=== PATIENT | female | born 1975 | race Caucasian/White ===

== ENCOUNTER 2024-07-18 10:51 | Emergency (ER) | payer SELFPAY ==
[2024-07-18 10:54] VITALS: BP 148/85; PULSE 58; RESP 20; TEMP 37; O2SAT 98
--- NOTE | 2024-07-18 10:57 | CTR_ITS ---
PROCEDURE INFORMATION: Exam: CT Head Without Contrast Exam date and time: 07/18/2024 11:29 AM Age: 48 years old Clinical indication: Pain; Headache; Additional info: Headaches TECHNIQUE: Imaging protocol: Computed tomography of the head without contrast. Radiation optimization: All CT scans at this facility use at least one of these dose optimization techniques: automated exposure control; mA and/or kV adjustment per patient size (includes targeted exams where dose is matched to clinical indication); or iterative reconstruction. COMPARISON: No relevant prior studies available. RADIATION DOSE METRICS: Total DLP (mGy-cm): 1010.88 FINDINGS: Brain: Normal. No hemorrhage. Unremarkable white matter. No mass effect. Cerebral ventricles: No ventriculomegaly. Paranasal sinuses: Visualized sinuses are unremarkable. No fluid levels. Mastoid air cells: Visualized mastoid air cells are well aerated. Bones: Unremarkable. No acute fracture. Soft tissues: Unremarkable. CT/CT head wo con* [id number] IMPRESSION: No large territorial infarct or intracranial bleed.
--- NOTE | 2024-07-18 10:57 | W.ED.HA ---
HPI - Headache General: Chief Complaint: Headache Stated Complaint: headache Time Seen by Provider: 07/18/24 10:53 History of Present Illness: 48-year-old female with a history of hypertension presents emergency room with headaches. She presents by ambulance. Apparently she had an appointment somewhere but could not get a ride so she called an ambulance. Said this been going on for couple of weeks. Worse in the mornings. [place] of the point where she cannot get rid of it with [id number] medications. Photophobia. Phonophobia. Nausea. No altered mental status. No focal motor deficits. She says she just moved here and she does not have a primary care provider. Related Data Previous Rx's Medication Instructions Recorded cyclobenzaprine 10 mg tablet 10 mg PO Q8H PRN muscle spasm #20 07/18/24 tabs diclofenac sodium 50 mg 50 mg PO BID PRN pain #14 tabs 07/18/24 tablet,delayed release ondansetron 4 mg disintegrating 4 mg PO Q8H PRN nausea and 07/18/24 tablet vomiting #10 tabs Allergies Allergy/AdvReac Type Severity Reaction Status Date / Time Penicillins Allergy Unknown Verified 07/18/24 11:01 Review of Systems Narrative: Constitutional symptoms: Negative except as documented in HPI. Skin symptoms: Negative except as documented in HPI. Eye symptoms: Negative except as documented in HPI. ENMT symptoms: Negative except as documented in HPI. Respiratory symptoms: Negative except as documented in HPI. Cardiovascular symptoms: Negative except as documented in HPI. Gastrointestinal symptoms: Negative except as documented in HPI. Genitourinary symptoms: Negative except as documented in HPI. Musculoskeletal symptoms: Negative except as documented in HPI. Neurologic symptoms: Negative except as documented in HPI. Psychiatric symptoms: Negative except as documented in HPI. Endocrine symptoms: Negative except as documented in HPI. Physical Exam Narrative: EXAM NARRATIVE: General: Alert, no acute distress. Skin: warm and dry Head: Normocephalic Neck: Trachea midline Eye: Extraocular movements are intact. Ears, nose, mouth and throat: Oral mucosa moist Respiratory: Respirations are non-labored Musculoskeletal: Normal ROM Neurological: Alert and oriented, No focal neurological deficit observed. Psychiatric: Cooperative, appropriate mood & affect. Course Vital Signs: Vital signs: Vital Signs Temperature 98.6 F 07/18/24 10:54 Pulse Rate 87 07/18/24 12:00 Respiratory Rate 16 07/18/24 12:00 Blood Pressure 148/85 07/18/24 10:54 Pulse Oximetry 96 07/18/24 12:00 MDM - Headache Medical Decision Making Medical decision making: Differential diagnosis for this patient presenting with severe headache including but not limited to and based on the above HPI, review of systems and physical exam: Intracranial hemorrhage, stroke, migraine, cluster headache, infections such as influenza, covid CT head: No acute intracranial process. no intracranial hemorrhage, no evidence of infarct. no evidence of acute fracture.This was reviewed and interpreted by myself the ER physician. I reviewed the patient's medical record. Reexamination: Patient remained stable. No increased work of breathing. No altered mental status. No focal motor deficits. Assessment and plan: Migraine headache - 50 mg IV Benadryl - 30 mg IV Toradol - 10 mg IV Reglan - 8 mg IV Zofran - 60 mg IV Norflex - Discharged home - Discussed plan with patient. Answered any questions. - Evaluation and treatment of this problem were appropriate in the emergency setting. Lab Data Radiology Impressions Head CT 07/18/24 10:57 IMPRESSION: No large territorial infarct or intracranial bleed. All radiology interpretation(s) finalized by discharge Discharge Plan Discharge Patient Disposition: Home Clinical Impression: Headache Condition: Stable Prescriptions: New cyclobenzaprine 10 mg tablet 10 mg PO Q8H PRN (Reason: muscle spasm) Qty: 20 0RF diclofenac sodium 50 mg tablet,delayed release (DR/EC) 50 mg PO BID PRN (Reason: pain) Qty: 14 0RF ondansetron 4 mg tablet,disintegrating 4 mg PO Q8H PRN (Reason: nausea and vomiting) Qty: 10 0RF Discharge Orders: Discharge ED (Routine); Ordered 07/18/24 Ordered By: Savanna Chu Discharge Diet: Usual diet Discharge Activity: Increase activity as tolerated Patient Instructions: General Headache (ED), Opioid Safety, Pain Management Activity Restrictions/Additional Instructions: Thank you for choosing [facility] for your healthcare needs today. Please realize this is an emergency room and that we are providing you with a medical screening exam and this may not be complete and all inclusive of all the testing and or work up that you may need to determine your ailment or severity of your illness. You have been screened and evaluated and felt safe for discharge. Health conditions do change or evolve sometimes and as such it is important that you follow up with your Primary Doctor to be re checked, 3-5 days is a general good time frame for follow up. You are always welcome to return to the ED for re assessment if your symptoms are worsening or you have new concerns Coding Level of Care Code ED Animal Husbandry Manager for Patt Ibarra
[2024-07-18 12:00] VITALS: PULSE 87; RESP 16; O2SAT 96
[2024-07-18] MEDS: ondansetron 2 mg/ML SDV 2 mL 4 MG IVP (12:02)
[2024-07-18] MEDS: metoclopramide 5 mg/mL SDV 2 mL 10 MG IVP (12:02)
[2024-07-18] MEDS: diphenhydrAMINE 50 mg/mL SDV 1mL IVP (12:02)
[2024-07-18] MEDS: orphenadrine 30 mg/mL Inj 2 mL 60 MG IVP (12:02)
[2024-07-18] MEDS: ketorolac 30 mg/mL INJ IVP (12:02)
[2024-07-18] MEDS: dexamethasone 10 mg/mL INJ IVP (12:02)
[2024-07-18 12:32] VITALS: BP 130/86; PULSE 59; O2SAT 100
== END 2024-07-18 13:14 | disposition home or self-care (01) ==
PROVIDERS: Emergency Provider Emergency Medicine
DX: R51.9 Headache, unspecified (principal); I10 Essential (primary) hypertension
CPT/HCPCS: 70450; 96374; 96375; 99285; J1100; J1200; J1885; J2360; J2405; J2765

== ENCOUNTER 2024-08-20 09:41 | Emergency (ER) | payer BC, SELFPAY ==
--- NOTE | 2024-08-20 09:45 | XR_ITS ---
WS: [id number] Portable AP upright chest, 08/20/2024 Clinical Data: dyspnea/cough Comparison: None. Findings: No nodules, masses or effusions are seen. The heart is normal. The pulmonary vascularity is not increased. No pneumonia or pneumothorax is seen. The aortic arch and descending thoracic aorta show tortuosity. There is a 2.5 cm density overlying the left ventricle which could be on the patient's clothing or skin.. XR/XR chest 1V portable [id number] Impression: Atherosclerosis.
[2024-08-20 09:46] VITALS: BP 136/91; PULSE 94; RESP 18; TEMP 36.9; O2SAT 96
--- NOTE | 2024-08-20 09:57 | W.ED.COVID ---
HPI - COVID General: Chief Complaint: COVID symptoms Stated Complaint: flu like symptoms Time Seen by Provider: 08/20/24 09:45 History of Present Illness: 48-year-old female presents to the emergency room via EMS complaint of flulike symptoms for the last couple of days. Body aches headaches myalgias. Patient had nonproductive cough with congestion. Denies hemoptysis. No vomiting no diarrhea. No radiating chest pain. No history of DVT or PE not on any anticoagulants COVID 19 common symptoms: negative fever(s), chills or dyspnea COVID 19 other sytmptoms: negative chest pain COVID Results: Coronavirus (PCR) Negative (Negative) 08/20/24 10:24 08/20/24 Related Data Home Medications ?Medication ?Instructions ?Recorded ?Confirmed No Known Home Medications 08/20/24 08/20/24 Allergies Allergy/AdvReac Type Severity Reaction Status Date / Time Penicillins Allergy Unknown Verified 07/18/24 11:01 Review of Systems Const: Denies: fever(s) or chills Card: Denies: chest pain Resp: Denies: dyspnea GI: Denies: abdominal pain : Denies: dysuria, urinary frequency or urinary urgency Musc: Denies: neck pain or back pain Skin/Breast: Denies: rash Physical Exam Const: COMMON NORMALS: no acute distress GENERAL APPEARANCE: cooperative and comfortable ORIENTATION/CONSCIOUSNESS: Yes awake, Yes oriented to person, Yes oriented to place and Yes oriented to time HENMT: COMMON NORMALS: normocephalic, atraumatic and hearing grossly normal bilaterally HEAD & SCALP: normocephalic and atraumatic Resp: COMMON NORMALS: normal respiratory effort, No retractions, No use of accessory muscles and clear to auscultation bilaterally AUSCULTATION: clear to auscultation bilaterally Cardio: COMMON NORMALS: regular rate, regular rhythm and No murmurs present (Cardio) RATE: regular rate RHYTHM: regular rhythm GI: COMMON NORMALS: Soft to palpation and No hepatosplenomegaly present AUSCULTATION: Yes normoactive bowel sounds PALPATION: Yes Soft to palpation, No Tenderness to palpation present (GI), No Guarding due to palpation present (GI) and Yes No hepatosplenomegaly present Extremity: COMMON NORMALS: normal to inspection, capillary refill normal, no clubbing, cyanosis or edema, no calf tenderness and no pedal edema Neuro: SENSORIUM/ORIENTATION: Yes oriented to person, Yes oriented to place and Yes oriented to time Skin: COMMON NORMALS: no rashes or lesions noted GENERAL SKIN EXAM: no rashes or lesions noted Course Vital Signs: Vital signs: Vital Signs Temperature 98.5 F 08/20/24 09:46 Pulse Rate 91 08/20/24 11:57 Respiratory Rate 18 08/20/24 09:46 Blood Pressure 136/91 08/20/24 11:57 Pulse Oximetry 93 08/20/24 11:57 Oxygen Delivery Me thod Room Air 08/20/24 10:29 MDM - COVID Medical Decision Making Patient test positive for influenza consistent with her presenting symptoms. Discussed Tamiflu patient declines. Advised her generally is not that particularly helpful. Will have her follow-up with primary care as needed supportive cares. Lab Data Radiology Impressions Chest X-Ray 08/20/24 09:45 Impression: Atherosclerosis. Laboratory Results Coronavirus (PCR) Negative (Negative) 08/20/24 10:24 Influenza A (PCR) Positive (Negative) 08/20/24 10:24 Influenza Type B (PCR) Negative (Negative) 08/20/24 10:24 RSV (PCR) Negative (Negative) 08/20/24 10:24 Coronavirus (PCR) Negative (Negative) 08/20/24 10:24 08/20/24 All radiology interpretation(s) finalized by discharge Discharge Plan Discharge Patient Disposition: Home Clinical Impression: Influenza Condition: Stable Prescriptions: No Action No Known Home Medications Discharge Orders: Discharge ED (Routine); Ordered 08/20/24 Ordered By: Jorge Wiggins Discharge Diet: Usual diet Discharge Activity: Increase activity as tolerated Patient Instructions: Influenza (ED), Opioid Safety, Pain Management Activity Restrictions/Additional Instructions: Thank you for choosing [facility] for your healthcare needs today. It is very important that you follow up as instructed or that you return to the Emergency Department should you have concerns or if your condition changes or worsens in any way. Print Language: Luxembourgish Coding Level of Care Code ED Lining Sewer for Patt Ibarra
[2024-08-20 10:29] VITALS: O2SAT 92
[2024-08-20 11:09] LABS: Covid PCR NEGATIVE (Negative); Influenza A POSITIVE (Negative); Influenza B NEGATIVE (Negative); Respiratory Syncytial Virus Ce NEGATIVE (Negative)
[2024-08-20 11:57] VITALS: BP 136/91; PULSE 91; O2SAT 93
== END 2024-08-20 11:59 | disposition home or self-care (01) ==
PROVIDERS: Emergency Provider Family Medicine
DX: J10.1 Influenza due to other identified influenza virus with other respiratory manifestations (principal); Z11.52 Encounter for screening for COVID-19
CPT/HCPCS: 71045; 87637; 99284

== ENCOUNTER 2024-12-25 07:22 | Emergency (ER) | payer MEDICAID, SELFPAY ==
[2024-12-25 07:33] VITALS: BP 130/89; PULSE 80; RESP 17; TEMP 36.7; O2SAT 99; BMI 29.7
--- NOTE | 2024-12-25 07:47 | ED_ITS ---
HPI - Dental/Oral General: Chief complaint: Dental/Oral Stated complaint: dental pain Time Seen by Provider: 12/25/24 07:29 History of Present Illness: 49-year-old female presents emergency ro om complaining of dental pain for the last week. Complains of pain in the right mandible and left maxilla. She does have some swelling in those areas no actual drainage. No fever no vomiting or diarrhea she has not seen a dentist. Patient is not diabetic. She does report an allergy to penicillin. Associated symptoms: Denies fever(s) Related Data Previous Rx's ?Medication ?Instructions ?Recorded losartan 25 mg tablet 25 mg PO DAILY #90 tabs 10/14 10/06 clindamycin HCl 300 mg capsule 300 mg PO QID 10 days # 40 caps 12/25/24 (Cleocin HCl) diclofenac sodium 75 mg 75 mg PO Q12H PRN pain #20 t abs 12/25/24 tablet,delayed release Allergies Allergy/AdvReac Type Severity Reaction Status Date / Time Penicillins Allergy Unknown Verified 11/04/24 10:08 Review of Systems Const: Denies: fever(s) or chills ENMT: Reports: dental pain Card: Denies: chest pain Resp: Denies: dyspnea GI: Denies: abdominal pain : Denies: dysuria, urinary frequency or urinary urgency Musc: Denies: neck pain or back pain Skin/Breast: Denies: rash PFSH ED PFSH: Medical History Hx of cirrhosis History of intravenous drug use Hx of hepatitis C Hx of drug abuse Hx of breast cancer Essential hypertension Surgical History Hx of lumpectomy Hx of tooth extraction Family History Unknown Unknown family medical history Social History Smoking and tobacco/nicotine status: current every day tobacco/nicotine user Alcohol intake: former Substance/Drug Use: former Additional social history: denies current drug use Housing: Other Physical Exam Const: GENERAL APPEARANCE: cooperative ORIENTATION/CONSCIOUSNESS: Yes awake, Yes oriented to person, Yes oriented to place and Yes oriented to time HENMT: COMMON NORMALS: normocephalic, atraumatic and hearing grossly normal bilaterally HEAD & SCALP: normocephalic and atraumatic OTHER: Poor dentition with multiple caries several fractured teeth some swelling on the left premolar side no active drainage no abscess formation Resp: COMMON NORMALS: normal respiratory effort, No retractions, No use of accessory muscles and clear to auscultation bilaterally AUSCULTATION: clear to auscultation bilaterally Cardio: COMMON NORMALS: regular rate, regular rhythm and No murmurs present (Cardio) RATE: regular rate RHYTHM: regular rhythm GI: COMMON NORMALS: Soft to palpation and No hepatosplenomegaly present AUSCULTATION: Yes normoactive bowel sounds PALPATION: Yes Soft to palpation, No Tenderness to palpation present (GI), No Guarding due to palpation present (GI) and Yes No hepatosplenomegaly present Extremity: COMMON NORMALS: normal to inspection, capillary refill normal, no clubbing, cyanosis or edema, no calf tenderness and no pedal edema Neuro: SENSORIUM/ORIENTATION: Yes oriented to person, Yes oriented to place and Yes oriented to time Skin: COMMON NORMALS: no rashes or lesions noted GENERAL SKIN EXAM: no rashes or lesions noted Course Vital Signs: Vital signs: Vital Signs Temperature 98.0 F 12/25/24 07:33 Pulse Rate 77 12/25/24 07:58 Respiratory Rate 17 12/25/24 07:33 Blood Pressure 116/90 12/25/24 07:58 Pulse Oximetry 99 12/25/24 07:58 Oxygen Delivery Me thod Room Air 12/25/24 07:33 MDM - Dental/Oral Medical Decision Making Multiple dental caries there is some gingival swelling but no abscess formation we will start her on clindamycin due to penicillin allergy use diclofenac as needed and follow-up with dentist as soon as she is able for definitive care Medical Records I reviewed the patient's medical records. Lab Data I reviewed the patient's lab results. All radiology interpretation(s) finalized by discharge Discharge Plan Discharge Patient Disposition: Home Clinical Impression: Fracture of tooth, Dental caries Condition: Stable Prescriptions: New clindamycin HCl [Cleocin HCl] 300 mg capsule 300 mg PO QID 10 Days Qty: 40 0RF diclofenac sodium 75 mg tablet,delayed release (DR/EC) 75 mg PO Q12H PRN (Reason: pain) Qty: 20 0RF No Action losartan 25 mg tablet 25 mg PO DAILY Qty: 90 0RF Discharge Orders: Discharge ED (Routine); Ordered 12/25/24 Ordered By: Jorge Wiggins Discharge Diet: Soft Mechanical Discharge Activity: Resume usual activity Patient Instructions: Dental Caries (Cavities), Opioid Safety, Pain Management Activity Restrictions/Additional Instructions: Thank you for choosing [facility] for your healthcare needs today. It is very important that you follow up as instructed [facility] should you have concerns or if your condition changes or worsens in any way. You were seen in the emergency room with complaint of tooth pain. There are some slight swelling noted along the gingiva (soft tissue at the gumline). Recommend he start on oral antibiotics clindamycin 1 tablet 4 times a day for 10 days and also given diclofenac to use for pain. You can also try over -the-counter topical remedies such as clove oil or Anbesol. Recommend you follow up with a dentist as soon as you are able. Print Language: Divehi Coding Level of Care Code ED Asset Management Lead for Patt Ibarra
[2024-12-25 07:58] VITALS: BP 116/90; PULSE 77; O2SAT 99
== END 2024-12-25 08:00 | disposition home or self-care (01) ==
PROVIDERS: Emergency Provider Family Medicine
DX: S02.5XXA Fracture of tooth (traumatic), initial encounter for closed fracture (principal); K02.9 Dental caries, unspecified; I10 Essential (primary) hypertension; Z85.3 Personal history of malignant neoplasm of breast; Z72.0 Tobacco use; X58.XXXA Exposure to other specified factors, initial encounter
CPT/HCPCS: 99283

== ENCOUNTER 2025-02-25 13:49 | Outpatient (CLI) | payer MEDICAID, SELFPAY ==
--- NOTE | 2025-02-25 13:30 | MM_ITS ---
WS: [id number] BILATERAL 3D TOMOSYNTHESIS DIGITAL DIAGNOSTIC MAMMOGRAPHY WITH CAD CLINICAL INFORMATION: N63.10 - Unspecified lump in the right breast, unspecifie... HISTORY: RIGHT breast lump. History of breast cancer. COMPARISON: None available TECHNIQUE: Bilateral CC, MLO, and ML views. FINDINGS: The breasts are composed of heterogeneous fibroglandular density, which can limit the detection of small underlying mass lesions. Palpable marker upper outer RIGHT breast. A small amount of skin thickening in this area. Ultrasound is pending. Parenchymal scarring in the lower inner RIGHT breast presumably from prior lumpectomy. Unremarkable LEFT breast. ULTRASOUND BREAST RIGHT TECHNIQUE: Ultrasound right breast focused area of concern. CLINICAL INFORMATION: N63.10 - Unspecified lump in the right breast, unspecifie... FINDINGS: Ultrasound RIGHT breast in the area of concern patient directed 9 o'clock position 2 cm from the nipple. Small amount of skin thickening and subcutaneous soft tissue thickening in this area likely corresponds to the area of concern suspicious for a small sebaceous cyst. No suspicious cystic or solid lesions to target for biopsy. Recommend return to annual screening mammography. MM/MM diag tomosynthesis [id number] IMPRESSION: DENSITY: The breasts are heterogeneously dense, which may obscure small masses. BI-RADS: 2 - Benign FOLLOW UP: 1 Year Follow-up Recommend return to annual diagnostic mammography.
--- NOTE | 2025-02-25 13:56 | US_ITS ---
WS: [id number] BILATERAL 3D TOMOSYNTHESIS DIGITAL DIAGNOSTIC MAMMOGRAPHY WITH CAD CLINICAL INFORMATION: N63.10 - Unspecified lump in the right breast, unspecifie... HISTORY: RIGHT breast lump. History of breast cancer. COMPARISON: None available TECHNIQUE: Bilateral CC, MLO, and ML views. FINDINGS: The breasts are composed of heterogeneous fibroglandular density, which can limit the detection of small underlying mass lesions. Palpable marker upper outer RIGHT breast. A small amount of skin thickening in this area. Ultrasound is pending. Parenchymal scarring in the lower inner RIGHT breast presumably from prior lumpectomy. Unremarkable LEFT breast. ULTRASOUND BREAST RIGHT TECHNIQUE: Ultrasound right breast focused area of concern. CLINICAL INFORMATION: N63.10 - Unspecified lump in the right breast, unspecifie... FINDINGS: Ultrasound RIGHT breast in the area of concern patient directed 9 o'clock position 2 cm from the nipple. Small amount of skin thickening and subcutaneous soft tissue thickening in this area likely corresponds to the area of concern suspicious for a small sebaceous cyst. No suspicious cystic or solid lesions to target for biopsy. Recommend return to annual screening mammography. US/US breast RT limited* [id number] IMPRESSION: DENSITY: The breasts are heterogeneously dense, which may obscure small masses. BI-RADS: 2 - Benign FOLLOW UP: 1 Year Follow-up Recommend return to annual diagnostic mammography.
== END 2025-02-25 13:50 | disposition home or self-care (01) ==
LOC: RAD 13:50
PROVIDERS: PCP Clinical Nurse Specialist Adult Health; Visit Provider Clinical Nurse Specialist Adult Health
DX: N63.10 Unspecified lump in the right breast, unspecified quadrant (principal); Z85.3 Personal history of malignant neoplasm of breast; R92.323 Mammographic fibroglandular density, bilateral breasts; R92.333 Mammographic heterogeneous density, bilateral breasts
CPT/HCPCS: 76642; 77062; G0279

== ENCOUNTER → 2025-04-06 09:21 | Outpatient (BNVA) | payer MEDICAID, SELFPAY | PROVIDERS: PCP Clinical Nurse Specialist Adult Health; Visit Provider Student in an Organized Health Care Education/Training Program | DX: Z11.3 Encounter for screening for infections with a predominantly sexual mode of transmission (principal); B19.20 Unspecified viral hepatitis C without hepatic coma | CPT/HCPCS: 99205 ==